=== PATIENT | female | born 1975 | race Caucasian/White ===

== ENCOUNTER 2016-10-02 12:18 | Emergency (ER) | payer MEDICAID ==
[2016-10-02 12:35] VITALS: BP 95/62
--- NOTE | 2016-10-02 13:23 | ER Document Report ---
ED Medical Screen (RME) - General Chief Complaint: Anxiety Stated Complaint: ANXIETY Mode of Arrival: Ambulatory Information source: Patient Notes: Patient presents to the ED tearful, complaining of extreme depression, weakness , fatigue. Relates history of much psychosocial stress. Has been taking Percocet which she has obtained from a friend. Has history of depression but no recent medication. TRAVEL OUTSIDE OF THE [place] IN LAST 30 DAYS: No - HPI Onset: Last week Onset/Duration: Gradual Quality of pain: Achy Associated Symptoms: Weakness. denies: Abdominal pain, Chest pain, Nausea Exacerbated by: Denies Relieved by: Denies Similar symptoms previously: Yes - NOT RECENT Recently seen / treated by doctor: No - Related Data Allergies/Adverse Reactions: No Known Allergies Allergy (Verified 10/02/16 12:33) Past Medical History - General Information source: Patient - Social History Cigarette use (# per day): Yes Chew tobacco use (# tins/day): No Frequency of alcohol use: None Drug Abuse: None Lives with: Friend Family history: Reviewed & Not Pertinent - Past Medical History Cardiac Medical History: Reports: None Pulmonary Medical History: Reports: None EENT Medical History: Reports: None Neurological Medical History: Reports: None Endocrine Medical History: Reports: None Renal/ Medical History: Reports: Hx Ovarian Cysts. Denies: Hx Peritoneal Dialysis Malignancy Medical History: Reports: None GI Medical History: Reports: None Musculoskeltal Medical History: Reports Other - CARPAL TUNNEL Psychiatric Medical History: Reports: Hx Anxiety, Hx Bipolar Disorder, Hx Depression Past Surgical History: Reports: Hx Abdominal Surgery, Hx Gynecologic Surgery - endometriosis - Immunizations Immunizations up to date: No Hx Diphtheria, Pertussis, Tetanus Vaccination: Yes - received this Review of Systems - Review of Systems Constitutional: See HPI EENT: No symptoms reported Cardiovascular: No symptoms reported Respiratory: No symptoms reported Gastrointestinal: No symptoms reported Genitourinary: No symptoms reported Female Genitourinary: No symptoms reported Musculoskeletal: See HPI Skin: No symptoms reported Neurological/Psychological: No symptoms reported Physical Exam - Vital signs Vitals: Temp Pulse Resp BP Pulse Ox 98.5 F 117 H 22 H 95/62 L 99 10/02/16 12:33 10/02/16 12:33 10/02/16 12:33 10/02/16 12:33 10/02/16 12:33 Interpretation: Hypotensive, Tachycardic, Tachypneic - General General appearance: Anxious In distress: Mild - HEENT Head: Normocephalic Eyes: Normal Ears: Normal Nasal: Normal Mouth/Lips: Normal Mucous membranes: Normal - Respiratory Respiratory status: No respiratory distress Breath sounds: Normal - Cardiovascular Rhythm: Regular, Tachycardia Heart sounds: Normal auscultation Murmur: No Course - Vital Signs Vital signs: Temp Pulse Resp BP Pulse Ox 98.5 F 117 H 22 H 95/62 L 99 10/02/16 12:33 10/02/16 12:33 10/02/16 12:33 10/02/16 12:33 10/02/16 12:33 Doctor's Discharge - Discharge Instructions: Anxiety ([facility])
[2016-10-02 14:02] LABS: ABSOLUTE BASOPHILS # (AUTO) 0.1 10^3/uL (0.0-0.2); ABSOLUTE LYMPHOCYTES (AUTO) 2.1 10^3/uL (0.5-4.7); ABSOLUTE NEUT (AUTO) 15.7 10^3/uL (1.7-8.2); BASOPHILS % (AUTO) 0.3 % (0-2); HEMATOCRIT 41.1 % (36.0-47.0); HEMOGLOBIN 13.7 g/dL (12.0-15.5); LYMPHOCYTES % (AUTO) 10.8 % (13-45); MEAN CORPUSCULAR HEMOGLOBIN 30.7 pg (27.0-33.4); MEAN CORPUSCULAR HGB CONC 33.3 g/dL (32.0-36.0); MEAN CORPUSCULAR VOLUME 92 fl (80-97); MONOCYTES % (AUTO) 10.1 % (3-13); RED BLOOD COUNT 4.45 10^6/uL (3.72-5.28); RED CELL DISTRIBUTION WIDTH 13.5 % (11.5-14.0); SEGMENTED NEUTROPHILS % (AUTO) 78.8 % (42-78); WHITE BLOOD COUNT 19.9 10^3/uL (4.0-10.5)
[2016-10-02 14:21] LABS: ALANINE AMINOTRANSFERASE 59 U/L (9-52); ALBUMIN 3.9 g/dL (3.5-5.0); ALKALINE PHOSPHATASE 91 U/L (38-126); ANION GAP 16 (5-19); ASPARTATE AMINO TRANSFERASE 52 U/L (14-36); BILIRUBIN,DIRECT 0.4 mg/dL (0.0-0.4); BILIRUBIN,TOTAL 0.6 mg/dL (0.2-1.3); BLOOD UREA NITROGEN 18 mg/dL (7-20); CARBON DIOXIDE 27 mmol/L (22-30); CHLORIDE 97 mmol/L (98-107); CREATININE RESULT 1.32 mg/dL (0.52-1.25); GLUCOSE 132 mg/dL (75-110); POTASSIUM 4.7 mmol/L (3.6-5.0); SODIUM 140.1 mmol/L (137-145); TOTAL PROTEIN 7.6 g/dL (6.3-8.2)
[2016-10-02 14:22] LABS: APPEARANCE,URINE CLOUDY; BILIRUBIN,URINE NEGATIVE (NEGATIVE); GLUCOSE, URINE NEGATIVE (NEGATIVE); KETONES,URINE NEGATIVE (NEGATIVE); LEUKOCYTE ESTERASE,URINE TRACE (NEGATIVE); NITRITE,URINE NEGATIVE (NEGATIVE); PROTEIN,URINE 100 mg/dL (NEGATIVE); URINE SPECIFIC GRAVITY 1.014; UROBILINOGEN,URINE NEGATIVE mg/dL (<2.0)
[2016-10-02 14:29] LABS: URINE BARBITURATES SCREEN NEGATIVE; URINE METHADONE SCREEN NEGATIVE; URINE OPIATES LOW UNCONFIRMED POSITIVE; URINE PHENCYCLIDINE SCREEN NEGATIVE
[2016-10-02 14:33] LABS: ALCOHOL < 10 mg/dL (NONE DETECTED)
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
[2016-10-02] MEDS ORDERED: NORMAL SALINE 1000 ML 1,000 ML IV ONE (14:39)
--- NOTE | 2016-10-03 08:12 | EKG REPORT ---
SEVERITY:- NORMAL ECG - SINUS RHYTHM : Confirmed by: Krish Fernandez MD 03-Oct-2016 08:10:48
== END 2016-10-02 16:06 | disposition home or self-care (01) ==
LOC: ER 12:18
DX: G56.03 Carpal tunnel syndrome, bilateral upper limbs (principal); F11.10 Opioid abuse, uncomplicated; F41.9 Anxiety disorder, unspecified; F17.210 Nicotine dependence, cigarettes, uncomplicated
CPT/HCPCS: 36415; 80053; 80307; 81001; 81025; 85025; 87040; 87086; 87088; 87186; 93005; 93010; 99283

== ENCOUNTER 2016-11-08 10:56 | Emergency (ER) | payer SELFPAY ==
[2016-11-08 11:00] VITALS: BP 131/76
[2016-11-08] MEDS ORDERED: LORATADINE 10 MG TABLET PO ONE (11:36)
[2016-11-08] MEDS ORDERED: PSEUDOEPHEDRINE HCL 30 MG TABLET PO ONE (11:36)
--- NOTE | 2016-11-08 11:41 | ER Document Report ---
HPI - HPI Patient complains to provider of: Ringing in her ears Onset: Other - Thursday Onset/Duration: Intermittent Quality of pain: Achy - And ringing Severity: Moderate Pain Level: 3 Associated Symptoms: Earache, Rhinnorhea, Sinus pain/drainage Exacerbated by: Denies Relieved by: Denies Similar symptoms previously: Yes Recently seen / treated by doctor: No - ROS ROS below otherwise negative: Yes - CONSTITUTIONAL Constitutional: DENIES: Fever, Chills - EENT EENT: REPORTS: Ear Pain, Nasal Drainage-Clear - NEURO Neurology: DENIES: Headache, Weakness, Vision blurred, Dizzinesss / Vertigo - CARDIOVASCULAR Cardiovascular: DENIES: Chest pain - RESPIRATORY Respiratory: DENIES: Trouble Breathing, Coughing - GASTROINTESTINAL Gastrointestinal: DENIES: Abdominal Pain, Nausea, Patient vomiting, Diarrhea, Constipation, Black / Bloody Stools - URINARY Urinary: DENIES: Dysuria, Urgency, Frequency - REPRODUCTIVE Reproductive: DENIES: :, Postmenopausal, Abnormal bleeding / discharge - MUSCULOSKELETAL Musculoskeletal: DENIES: Extremity pain, Back Pain, Neck Pain, Swelling - DERM Skin Color: Normal Skin Problems: None Past Medical History - General Information source: Patient - Social History Smoking Status: Current Every Day Smoker Cigarette use (# per day): Yes - Pack per day Chew tobacco use (# tins/day): No Smoking Education Provided: Yes - Less than 1 minute Frequency of alcohol use: None Drug Abuse: Marijuana, Prescription drugs - Percocet 30's states she is now on Suboxone Lives with: Family - And her daughter Family History: Reviewed & Not Pertinent Patient has suicidal ideation: No Patient has homicidal ideation: No - Past Medical History Cardiac Medical History: Reports: None Pulmonary Medical History: Reports: Hx Bronchitis EENT Medical History: Reports: None Neurological Medical History: Reports: Hx Seizures - As a child Endocrine Medical History: Reports: None Renal/ Medical History: Reports: Hx Ovarian Cysts, Other - Endometriosis Malignancy Medical History: Reports: None GI Medical History: Reports: None Musculoskeltal Medical History: Reports None Skin Medical History: Reports None Psychiatric Medical History: Reports: Hx Anxiety, Hx Bipolar Disorder, Hx Depression Traumatic Medical History: Reports: None Infectious Medical History: Reports: None Past Surgical History: Reports: Hx Gynecologic Surgery - endometriosis - Immunizations Immunizations up to date: No Hx Diphtheria, Pertussis, Tetanus Vaccination: Yes - received this Vertical Provider Document - CONSTITUTIONAL Agree With Documented VS: Yes Exam Limitations: No Limitations General Appearance: WD/WN, Mild Distress - Agitated and angry - INFECTION CONTROL TRAVEL OUTSIDE OF THE [place] IN LAST 30 DAYS: No - HEENT HEENT: Atraumatic, PERRLA Notes: Tympanic membranes have minimal fluid behind them no wax in the ears no redness to the tympanic membrane no bulging. - NECK Neck: Normal Inspection, Supple - RESPIRATORY Respiratory: Breath Sounds Normal, No Respiratory Distress O2 Sat by Pulse Oximetry: 100 - CARDIOVASCULAR Cardiovascular: Regular Rate, Regular Rhythm, No Murmur Course - Re-evaluation Re-evalutation: 11/08/16 11:42 Patient treated with Claritin and Sudafed and encouraged to follow-up with ENT. - Vital Signs Vital signs: Temp Pulse Resp BP Pulse Ox 97.8 F 56 L 20 131/76 H 100 11/08/16 10:58 11/08/16 10:58 11/08/16 10:58 11/08/16 10:58 11/08/16 10:58 Discharge - Discharge Clinical Impression: Ringing in left ear Otalgia Qualifiers: Laterality: right Qualified Code(s): H92.01 - Otalgia, right ear Condition: Stable Disposition: HOME, SELF-CARE Additional Instructions: UPPER RESPIRATORY ILLNESS: You have a viral infection of the respiratory passages -- a "cold." This common infection causes nasal congestion, drainage, and often sore throat and cough. It is highly contagious. The disease usually lasts about 10 to 14 days. There is no "cure" for the viral infection -- it must run its course. If there is a complication, such as bacterial infection in the nose, sinuses, middle ear, or bronchial tubes, antibiotics may be required. The antibiotics won't affect the virus. Drink plenty of fluids. A humidifier may help. An expectorant medication or decongestant may make you more comfortable. Use acetaminophen or ibuprofen for fever or aches. See the doctor if fever persists over two days, if there is any significant worsening of your symptoms, or if you simply fail to improve as expected. DECONGESTANT MEDICATION: A decongestant medicine has been suggested often this medicine is combined in the same tablet with an antihistamine or expectorant. This type of medicine is helpful in treating a bad cold or sinus condition, as well as in treatment of the nasal congestion of hay fever. It is not of much benefit for lung infections. Decongestant medicines are related to stimulants. They can cause an increase in blood pressure and heart rate. Persons with heart disease and high blood pressure should not take decongestants without discussing this with the physician. If you develop palpitations, chest pain, headache, or tremors, stop the medicine and consult your physician. Ibuprofen Ibuprofen is an excellent, safe drug for pain control. In addition, it has potent antiinflammatory effects which are beneficial, especially in the treatment of injuries, arthritis, or tendonitis. It's best to take ibuprofen with food. Persons with ulcer disease or allergy to aspirin should notify their physician of this before taking ibuprofen. Take the medication exactly as prescribed. Don't take additional doses unless instructed to do so by your doctor. If you develop wheezing, shortness of breath, hives, faintness, stomach pain, vomiting, or dark black stools, return for re-evaluation at once. USE OF ACETAMINOPHEN (Tylenol): Acetaminophen may be taken for pain relief or fever control. It's much safer than aspirin, offering a wider range of "safe" dosages. It is safe during . Some brand names are Tylenol, Panadol, Datril, Anacin 3, Tempra, and Liquiprin. Acetaminophen can be repeated every four hours. The following are maximum recommended dosages: >89 pounds or adults 650 mg to 900 mg Acetaminophen can be repeated every four hours. Maximum dose not to exceed 4000 mg a day. SMOKING: If you smoke, you should stop smoking. The tar and chemicals in cigarette smoke are harmful. Smoking has been shown to cause: emphysema chronic bronchitis lung cancer mouth and throat cancer stomach and pancreas cancer premature aging defects In addition, smoking increases ear and lung infections in children of smokers. FOLLOW-UP CARE: If you have been referred to a physician for follow-up care, call the physician s office for an appointment as you were instructed or within the next two days. If you experience worsening or a significant change in your symptoms, notify the physician immediately or return to the Emergency Department at any time for re-evaluation. [facility] [address] Forms: Elevated Blood Pressure, Smoking Cessation Education, Return to Work
== END 2016-11-08 12:00 | disposition home or self-care (01) ==
LOC: ER 10:56
DX: H93.12 Tinnitus, left ear (principal); H92.01 Otalgia, right ear; J34.89 Other specified disorders of nose and nasal sinuses; F17.210 Nicotine dependence, cigarettes, uncomplicated; Z71.6 Tobacco abuse counseling
CPT/HCPCS: 99282

== ENCOUNTER 2017-06-08 13:12 | Emergency (ER) | payer SELFPAY ==
[2017-06-08 13:23] VITALS: BP 111/74
--- NOTE | 2017-06-08 14:20 | RADIOLOGY REPORT (SQ) ---
EXAM DESCRIPTION: CHEST PA/LAT COMPLETED DATE/TIME: 06/08/2017 2:07 pm REASON FOR STUDY: cough fever COMPARISON: 01/08/2014 NUMBER OF VIEWS: Two view. TECHNIQUE: Frontal and lateral radiographic views of the chest acquired. LIMITATIONS: None. FINDINGS: LUNGS AND PLEURA: No opacities, masses or pneumothorax. No pleural effusion. MEDIASTINUM AND HILAR STRUCTURES: No masses or contour abnormalities. HEART AND VASCULATURE: Heart normal size. No evidence for failure. BONY STRUCTURES: No acute findings. HARDWARE: None. OTHER: No other significant finding. IMPRESSION: NO SIGNIFICANT RADIOGRAPHIC FINDING IN THE CHEST. TECHNICAL DOCUMENTATION: JOB ID: [id number] [employer]- All Rights Reserved
--- NOTE | 2017-06-08 14:23 | ER Document Report ---
ED General - General Chief Complaint: Cold Symptoms Stated Complaint: COUGH,CONGESTION,FEVER Time Seen by Provider: 06/08/17 13:37 Mode of Arrival: Ambulatory Information source: Patient Notes: 42-year-old female presents with 2 separate complaints. Patient notes that she is having URI symptoms. She admits to nonproductive cough of one-week duration. She notes her daughter had similar complaints. She denies any fevers or chills. Patient also notes that she has dental pain and believes a tooth is infected. She denies any bad taste or swelling of her face. She denies any difficulty swallowing or breathing TRAVEL OUTSIDE OF THE U.S. IN LAST 30 DAYS: No - HPI Onset: Last week Onset/Duration: Persistent Quality of pain: Achy Severity: Mild Pain Level: 1 Associated symptoms: Nonproductive cough, Other Exacerbated by: Food Relieved by: Denies Similar symptoms previously: No Recently seen / treated by doctor: No - Related Data Allergies/Adverse Reactions: No Known Allergies Allergy (Verified 11/08/16 10:58) Past Medical History - Social History Smoking Status: Current Every Day Smoker Cigarette use (# per day): Yes Chew tobacco use (# tins/day): No Smoking Education Provided: No Frequency of alcohol use: None Drug Abuse: None Family History: None Patient has suicidal ideation: No Patient has homicidal ideation: No Pulmonary Medical History: Reports: Hx Bronchitis Neurological Medical History: Reports: Hx Seizures - As a child Renal/ Medical History: Reports: Hx Ovarian Cysts. Denies: Hx Peritoneal Dialysis Psychiatric Medical History: Reports: Hx Anxiety, Hx Bipolar Disorder, Hx Depression Past Surgical History: Reports: Hx Abdominal Surgery, Hx Gynecologic Surgery - endometriosis - Immunizations Immunizations up to date: No Hx Diphtheria, Pertussis, Tetanus Vaccination: Yes - received this Review of Systems - Review of Systems Notes: REVIEW OF SYSTEMS: CONSTITUTIONAL : Denies fever, chills, or sweats. Denies recent illness. EENT: Admits to dental pain CARDIOVASCULAR: Denies chest pain. Denies palpitations or racing or irregular heart beat. Denies ankle edema. RESPIRATORY: Admits to nonproductive cough GASTROINTESTINAL: Denies abdominal pain or distention. Denies nausea, vomiting , or diarrhea. Denies blood in vomitus, stools, or per rectum. Denies black, tarry stools. Denies constipation. GENITOURINARY: Denies difficulty urinating, painful urination, burning, frequency, blood in urine, or discharge. FEMALE GENITOURINARY: Denies vaginal bleeding, heavy or abnormal periods, irregular periods. Denies vaginal discharge or odor. MUSCULOSKELETAL: Denies back or neck pain or stiffness. Denies joint pain or swelling. SKIN: Denies rash, lesions or sores. HEMATOLOGIC : Denies easy bruising or bleeding. LYMPHATIC: Denies swollen, enlarged glands. NEUROLOGICAL: Denies confusion or altered mental status. Denies passing out or loss of consciousness. Denies dizziness or lightheadedness. Denies headache. Denies weakness or paralysis or loss of use of either side. Denies problems with gait or speech. Denies sensory loss, numbness, or tingling. Denies seizures. PSYCHIATRIC: Denies anxiety or stress. Denies depression, suicidal ideation, or homicidal ideation. ALL OTHER SYSTEMS REVIEWED AND NEGATIVE. PHYSICAL EXAMINATION: GENERAL: Well-appearing, well-nourished and in no acute distress. HEAD: Atraumatic, normocephalic. EYES: Pupils equal round and reactive to light, extraocular movements intact, conjunctiva are normal. ENT: Tooth #20 tender to palpation nares patent, oropharynx clear without exudates. Moist mucous membranes. NECK: Normal range of motion, supple without lymphadenopathy LUNGS: Breath sounds clear to auscultation bilaterally and equal. No wheezes rales or rhonchi. HEART: Regular rate and rhythm without murmurs ABDOMEN: Soft, nontender, nondistended abdomen. No guarding, no rebound. No masses appreciated. Female : deferred Musculoskeletal: Normal range of motion, no pitting or edema. No cyanosis. NEUROLOGICAL: Cranial nerves grossly intact. Normal speech, normal gait. Normal sensory, motor exams PSYCH: Normal mood, normal affect. SKIN: Warm, Dry, normal turgor, no rashes or lesions noted. Dictation was performed using [employer] voice recognition software Physical Exam - Vital signs Vitals: Temp Pulse Resp BP Pulse Ox 98.5 F 81 18 111/74 100 06/08/17 13:23 06/08/17 13:23 06/08/17 13:23 06/08/17 13:23 06/08/17 13:23 Course - Re-evaluation Re-evalutation: 06/08/17 19:26 Chest x-ray noted no significant abnormality, patient's overall presentation is extremely benign, she is in no distress, patient does admit to dental pain, patient will be placed on antibiotics and given a list of low-cost dentistry for further care After performing a Medical Screening Examination, I estimate there is LOW risk for ACUTE CORONARY SYNDROME, PULMONARY EMBOLI, RESPIRATORY FAILURE, SEPSIS OR MENINGITIS, thus I consider the discharge disposition reasonable. I have reevaluated this patient multiple times and no significant life threatening changes are noted. The patient and I have discussed the diagnosis and risks, and we agree with discharging home with close follow-up. We also discussed returning to the Emergency Department immediately if new or worsening symptoms occur. We have discussed the symptoms which are most concerning (e.g., changing or worsening pain, trouble swallowing or breathing, neck stiffness, fever) that necessitate immediate return. - Vital Signs Vital signs: Temp Pulse Resp BP Pulse Ox 98.5 F 81 18 111/74 100 06/08/17 13:23 06/08/17 13:23 06/08/17 13:23 06/08/17 13:23 06/08/17 13:23 - Diagnostic Test Radiology reviewed: Image reviewed, Reports reviewed - No acute abnormality Discharge - Discharge Clinical Impression: URI with cough and congestion Condition: Stable Disposition: HOME, SELF-CARE Instructions: Upper Respiratory Illness ([facility]) Additional Instructions: Follow up with your physician tomorrow for further care or return to the ED IMMEDIATELY if symptoms worsen or new concerns occur. If you cannot afford to follow up with your primary care physician a list of low cost clinics have been provided at the end of your discharge papers as well. Prescriptions: Penicillin V Potassium [Penicillin Vk 500 mg Tablet] 500 mg PO QID #40 tablet
== END 2017-06-08 14:28 | disposition home or self-care (01) ==
LOC: ER 13:12
DX: R05 Cough (principal); R50.9 Fever, unspecified; F17.210 Nicotine dependence, cigarettes, uncomplicated
CPT/HCPCS: 71046; 99283

== ENCOUNTER 2017-07-24 13:52 | Emergency (ER) | payer SELFPAY ==
[2017-07-24 14:14] VITALS: BP 95/55
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
== END 2017-07-24 15:33 | disposition home or self-care (01) ==
LOC: ER 13:52
DX: G47.00 Insomnia, unspecified (principal); F32.89 Other specified depressive episodes; Z79.899 Other long term (current) drug therapy; F17.200 Nicotine dependence, unspecified, uncomplicated
CPT/HCPCS: 99281

== ENCOUNTER 2018-07-05 20:10 | Emergency (ER) | payer MEDICAID ==
[2018-07-06] MEDS ORDERED: LIDOCAINE 1% INJ-PF (10 MG/ML) 30 ML SDV INJ ONE (01:16)
[2018-07-06] MEDS ORDERED: CEPHALEXIN 500 MG CAPSULE PO ONE (01:23)
[2018-07-06] MEDS ORDERED: SULFAMETHOXAZOLE/TRIMETHOPRIM 800-160 MG TABLET PO ONE (01:24)
[2018-07-06] MEDS ORDERED: IBUPROFEN 600 MG TABLET PO ONE (01:25)
--- NOTE | 2018-07-06 01:27 | ER Document Report ---
HPI - HPI Time Seen by Provider: 07/06/18 00:55 Pain Level: 4 Context: Patient is a 43-year-old female who presents emergency department with a chief complaint of a cyst and boil to her left axilla and nose. She states that she does not want to have her cyst drained. She has had these for the past few days. She has a history of abcesses that were surgically removed. She also states that she is out of her bipolar and depression medication. She does IV drugs. She states that is painful and all she wants is to have ibuprofen and antibiotics. She also stated that she will get high and drain them herself. She does admit to having on and off fevers. - CONSTITUTIONAL Constitutional: REPORTS: Fever - low grade - EENT EENT: DENIES: Sore Throat - NEURO Neurology: DENIES: Headache - CARDIOVASCULAR Cardiovascular: DENIES: Chest pain - RESPIRATORY Respiratory: DENIES: Coughing - REPRODUCTIVE Reproductive: DENIES: : - DERM Skin Color: Other - Abscess to axilla; redness to the right side of nose. Past Medical History - General Information source: Patient - Social History Smoking Status: Current Every Day Smoker Drug Abuse: Cocaine, Marijuana Family History: None Patient has suicidal ideation: No Patient has homicidal ideation: No Pulmonary Medical History: Reports: Hx Bronchitis Neurological Medical History: Reports: Hx Seizures - As a child Renal/ Medical History: Reports: Hx Ovarian Cysts. Denies: Hx Peritoneal Dialysis Psychiatric Medical History: Reports: Hx Anxiety, Hx Bipolar Disorder, Hx Depression Past Surgical History: Reports: Hx Abdominal Surgery, Hx Gynecologic Surgery - endometriosis - Immunizations Immunizations up to date: No Hx Diphtheria, Pertussis, Tetanus Vaccination: Yes - received this Vertical Provider Document - INFECTION CONTROL TRAVEL OUTSIDE OF THE [place] IN LAST 30 DAYS: No - HEENT HEENT: Atraumatic, Normocephalic - NECK Neck: Normal Inspection - RESPIRATORY Respiratory: No Respiratory Distress - CARDIOVASCULAR Cardiovascular: Regular Rate, Regular Rhythm - MUSCULOSKELETAL/EXTREMETIES Musculoskeletal/Extremeties: FROM - NEURO Level of Consciousness: Awake, Alert, Agitated - DERM Integumentary: Warm, Dry, Abscess - to left axilla area; cellulitis noted to right nose Course - Re-evaluation Re-evalutation: 07/06/18 01:27 I have discussed with the patient that not draining her abscess and only being on antibiotics will not fix her abscess problem. She says she does not care and that she does not want it drained. She also states that she only wants antibiotics and some ibuprofen for pain. As far as her depression and bipolar medicine goes, she is asking to be referred out to a primary care provider. She states that she has been [facility] and does not wish to go there anymore. Verbal discharge instructions were given to the patient. They verbalized understanding. They are stable for discharge. - Vital Signs Vital signs: Temp Pulse Resp BP Pulse Ox 98.1 F 110 H 20 121/76 98 07/05/18 20:19 07/05/18 20:19 07/05/18 20:19 07/05/18 20:19 07/05/18 20:19 Discharge - Discharge Clinical Impression: Abscess Cellulitis Qualifiers: Site of cellulitis: unspecified site Qualified Code(s): L03.90 - Cellulitis, unspecified Condition: Stable Disposition: HOME, SELF-CARE Instructions: Abscess ([facility]), Cephalexin ([facility]), MRSA Cellulitis ([facility]), Trimethoprim-Sulfa ([facility]) Additional Instructions: You are seen in the emergency department for an abscess. You also have cellulitis, inflammation of the cells in the area. You have been given antibiotics. Since you did not want to have the abscess drained, or is no guarantee that your symptoms will get better. You may take ibuprofen 600 mg every 6 hours as needed for your pain. Please return if you develop fever, vomiting, the pain at the site worsens, you notice spreading redness from the area, or you have any other symptoms that are concerning to you. Below is a primary care provider that takes Medicaid, you may call their office to make an appointment for your primary care needs. Prescriptions: RX: Cephalexin Monohydrate [Keflex 500 mg Capsule] 500 mg PO Q6H 7 Days capsule Sulfamethoxazole/Trimethoprim [Bactrim Ds Tablet] 1 each PO BID 7 Days #14 tablet Referrals: SHAAN GUPTA MD [ACTIVE STAFF] - Follow up as needed
[2018-07-06 01:59] VITALS: BP 125/79
== END 2018-07-06 02:01 | disposition home or self-care (01) ==
LOC: ER 20:10
DX: L02.412 Cutaneous abscess of left axilla (principal); J34.0 Abscess, furuncle and carbuncle of nose; F17.200 Nicotine dependence, unspecified, uncomplicated
CPT/HCPCS: 99282; J3490 ×2

== ENCOUNTER 2018-07-28 16:39 | Emergency (ER) | payer MEDICAID ==
[2018-07-28 17:02] VITALS: BP 132/87
--- NOTE | 2018-07-28 17:15 | ER Document Report ---
ED Medical Screen (RME) - General Chief Complaint: Psych Problem Stated Complaint: FEELING ANXIOUS Time Seen by Provider: 07/28/18 17:13 Notes: 43 years old female with a history of cocaine abuse, presents today for detox program. She also have bipolar disorder. Feeling sad but not suicidal. But angry and hateful. TRAVEL OUTSIDE OF THE [place] IN LAST 30 DAYS: No - Related Data Allergies/Adverse Reactions: No Known Allergies Allergy (Verified 07/28/18 16:40) Past Medical History - Social History Chew tobacco use (# tins/day): No Drug Abuse: Cocaine Family history: Reviewed & Not Pertinent Pulmonary Medical History: Reports: Hx Bronchitis Neurological Medical History: Reports: Hx Seizures - As a child Renal/ Medical History: Reports: Hx Ovarian Cysts. Denies: Hx Peritoneal Dialysis Psychiatric Medical History: Reports: Hx Anxiety, Hx Bipolar Disorder, Hx Depression Past Surgical History: Reports: Hx Abdominal Surgery, Hx Gynecologic Surgery - endometriosis - Immunizations Immunizations up to date: No Hx Diphtheria, Pertussis, Tetanus Vaccination: Yes - received this Physical Exam - Vital signs Vitals: Temp Pulse Resp BP Pulse Ox 98.6 F 97 16 132/87 H 97 07/28/18 16:59 07/28/18 16:59 07/28/18 16:59 07/28/18 16:59 07/28/18 16:59 Course - Vital Signs Vital signs: Temp Pulse Resp BP Pulse Ox 98.6 F 97 16 132/87 H 97 07/28/18 16:59 07/28/18 16:59 07/28/18 16:59 07/28/18 16:59 07/28/18 16:59
--- NOTE | 2018-07-28 18:17 | ER Document Report ---
ED Psych Disorder / Suicide - General Chief Complaint: Psych Problem Stated Complaint: FEELING ANXIOUS Time Seen by Provider: 07/28/18 18:17 Primary Care Provider: [facility] [Provider Group] - Follow up as needed Mode of Arrival: Ambulatory Information source: Patient Notes: HISTORY OF PRESENT ILLNESS: Patient is a 43-year-old female with a past medical history of multiple chronic psychiatric conditions and chronic substance abuse who presents with increased depression that she reports is secondary to the birthday of her "baby lara." Onset: The past 2-3 days Provocation: Recent stress Quality: Increased depression Radiation: None Severity: Moderate Timing: Constant SI/HI: No Hallucinations: None Current therapist: None Current treatment: None REVIEW OF SYSTEMS: CONSTITUTIONAL : Denies fever or chills, no sweats. Denies recent illness. EENT: Denies eye, ear, throat, or mouth pain or symptoms. Denies nasal or sinus congestion. CARDIOVASCULAR: Denies chest pain. RESPIRATORY: Denies cough, cold, or chest congestion. Denies shortness of breath, difficulty breathing, or wheezing. GASTROINTESTINAL: Denies abdominal pain. Denies nausea, vomiting, or diarrhea. Denies constipation. GENITOURINARY: Denies difficulty urinating, painful urination, burning, frequency, or blood in urine. FEMALE GENITOURINARY: Denies vaginal bleeding, abnormal or irregular periods. Last menstrual period MUSCULOSKELETAL: Denies neck or back pain or joint pain or swelling. SKIN: Denies rash or skin lesions. HEMATOLOGIC : Denies easy bruising or bleeding. LYMPHATIC: Denies swollen, enlarged glands. NEUROLOGICAL: Denies altered mental status or loss of consciousness. Denies headache. Denies weakness or paralysis or loss of use of either side. Denies problems with gait or speech. Denies sensory or motor loss. PSYCHIATRIC: Positive for increased depression. Denies suicidal/homocidal thoughts. All other systems reviewed and negative. PHYSICAL EXAMINATION: GENERAL: Well-appearing, well-nourished and in no acute distress. HEAD: Atraumatic, normocephalic. No scalp deformity, depression, or crepitance. EYES: Pupils are 3 mm and equal/round/reactive to light, extraocular movements intact, sclera anicteric, conjunctiva are normal. ENT: Nares patent bilaterally, oropharynx clear without exudates or palatal petechia. Moist mucous membranes. No tonsil hypertrophy. NECK: Normal range of motion, supple without lymphadenopathy. LUNGS: Breath sounds present, equal, and clear to auscultation bilaterally. No wheezes, rales, or rhonchi. HEART: Regular rate and rhythm without murmurs, rubs, or gallops. 2+ peripheral pulses. Normal capillary refill. ABDOMEN: Soft, nontender, nondistended. Normoactive bowel sounds. No guarding, no rebound. No masses appreciated. BACK: Normal contour, no midline tenderness. Rectal exam deferred. PELVC: Deferred. EXTREMITIES: Normal range of motion, no pitting or edema. No cyanosis. NEUROLOGICAL: No focal neurological deficits. Moves all extremities spontaneously and on command. PSYCH: Tearful and depressed mood, normal affect. No suicidal thoughts/ideations. No homocidal thoughts/ideations. No hallucinations. SKIN: Warm, dry, normal turgor, no rashes or lesions noted. ASSESSMENT AND PLAN: This patient is a 43-year-old female who presents with increased depression wit hout suicidal or homicidal ideations. 1. Will obtain medical clearance, give the patient oral Depakote, and reassess. 2. The patient has requested to be given outpatient resources and be discharged once medically cleared. She will be discharged with return precautions and follow-up 3. Patient voices both agreeing and understanding with the plan. TRAVEL OUTSIDE OF THE [place] IN LAST 30 DAYS: No - Related Data Allergies/Adverse Reactions: No Known Allergies Allergy (Verified 07/28/18 16:40) Past Medical History - General Information source: Patient - Social History Smoking Status: Current Every Day Smoker Chew tobacco use (# tins/day): No Frequency of alcohol use: Occasional Drug Abuse: Cocaine, Marijuana Lives with: Alone Family History: None Patient has suicidal ideation: No Patient has homicidal ideation: No - Past Medical History Cardiac Medical History: Reports: None Pulmonary Medical History: Reports: Hx Bronchitis EENT Medical History: Reports: None Neurological Medical History: Reports: Hx Seizures - As a child Endocrine Medical History: Reports: None Renal/ Medical History: Reports: Hx Ovarian Cysts. Denies: Hx Peritoneal Dialysis Malignancy Medical History: Reports: None GI Medical History: Reports: None Musculoskeletal Medical History: Reports None Skin Medical History: Reports None Psychiatric Medical History: Reports: Hx Anxiety, Hx Bipolar Disorder, Hx Depression Traumatic Medical History: Reports: None Infectious Medical History: Reports: None Past Surgical History: Reports: Hx Abdominal Surgery, Hx Gynecologic Surgery - endometriosis - Immunizations Immunizations up to date: No Hx Diphtheria, Pertussis, Tetanus Vaccination: Yes - received this History of Influenza Vaccine for 03/2017 - 07/2017 Season: Unknown Physical Exam - Vital signs Vitals: Temp Pulse Resp BP Pulse Ox 98.6 F 97 16 132/87 H 97 07/28/18 16:59 07/28/18 16:59 07/28/18 16:59 07/28/18 16:59 07/28/18 16:59 Course - Vital Signs Vital signs: Temp Pulse Resp BP Pulse Ox 98.6 F 97 16 132/87 H 97 07/28/18 16:59 07/28/18 16:59 07/28/18 16:59 07/28/18 16:59 07/28/18 16:59 - Laboratory Result Diagrams: 07/28/18 18:10 07/28/18 18:10 Laboratory results interpreted by me: 07/28/18 18:10 Calcium 10.3 H Salicylates < 1.0 L Acetaminophen < 10 L - EKG Interpretation by Pr EKG shows normal: Sinus rhythm Rate: Normal Rhythm: NSR [place]/QRS: No: Right axis deviation, Left axis deviation, RBBB, LBBB, IVCD, LAHB/LAFB, LPHB/LPFB, Bifasicular block Voltage: No: Increased voltage, Consistant with LVH, Decreased voltage, Throughout, Limb leads P Waves: No: BHARATH, LAE, Absent, AV Dissociation, Other Heart block present: No: 1st Degree, Mobitz 1, Mobitz 2, CHB (3rd degree block) When compared to previous EKG there are: No significant change Discharge - Discharge Clinical Impression: Substance abuse, Chronic depression Bipolar disorder Qualifiers: Active/Remission status: currently active Current bipolar episode type: depressed Current episode severity: moderate Qualified Code(s): F31.32 - Bipolar disorder, current episode depressed, moderate Condition: Good Disposition: HOME, SELF-CARE Instructions: Bipolar Disorder ([facility]), Family Physicians / Practices Additional Instructions: You have been evaluated in the Emergency Department for bipolar disorder and depression. While here, you had blood work obtained and it is now safe to be discharged home. Please follow-up with the resources provided as instructed as soon as possible. Return to the Emergency Department if you experience thoughts of hurting yourself thoughts of hurting other people, or any other concerning symptoms. Prescriptions: Trazodone HCl 50 mg PO QHS #30 tablet Divalproex Sodium [Depakote] 250 mg PO TID #90 tablet. Sulfamethoxazole/Trimethoprim [Bactrim Ds Tablet] 1 each PO BID #14 tablet Referrals: [facility] [Provider Group] - Follow up as needed Print Language: Yoruba
[2018-07-28 18:18] LABS: ABSOLUTE BASOPHILS # (AUTO) 0.1 10^3/uL (0.0-0.2); ABSOLUTE EOSINOPHILS # (AUTO) 0.1 10^3/uL (0.0-0.6); ABSOLUTE LYMPHOCYTES (AUTO) 2.2 10^3/uL (0.5-4.7); ABSOLUTE NEUT (AUTO) 4.3 10^3/uL (1.7-8.2); HEMOGLOBIN 13.6 g/dL (12.0-15.5); MEAN CORPUSCULAR HEMOGLOBIN 31.8 pg (27.0-33.4); MEAN CORPUSCULAR HGB CONC 34.8 g/dL (32.0-36.0); MEAN CORPUSCULAR VOLUME 92 fl (80-97); MONOCYTES % (AUTO) 12.6 % (3-13); PLATELET COUNT 221 10^3/uL (150-450); RED BLOOD COUNT 4.26 10^6/uL (3.72-5.28); RED CELL DISTRIBUTION WIDTH 13.5 % (11.5-14.0); SEGMENTED NEUTROPHILS % (AUTO) 56.4 % (42-78); TOTAL CELLS COUNTED % (AUTO) 100 %; WHITE BLOOD COUNT 7.6 10^3/uL (4.0-10.5)
[2018-07-28 18:41] LABS: ALANINE AMINOTRANSFERASE 21 U/L (9-52); ALBUMIN 4.7 g/dL (3.5-5.0); ALKALINE PHOSPHATASE 70 U/L (38-126); ANION GAP 13 (5-19); ASPARTATE AMINO TRANSFERASE 27 U/L (14-36); BILIRUBIN,DIRECT 0.2 mg/dL (0.0-0.4); BILIRUBIN,TOTAL 0.3 mg/dL (0.2-1.3); BLOOD UREA NITROGEN 20 mg/dL (7-20); CALCIUM 10.3 mg/dL (8.4-10.2); CARBON DIOXIDE 25 mmol/L (22-30); CHLORIDE 101 mmol/L (98-107); GLUCOSE 90 mg/dL (75-110); POTASSIUM 4.3 mmol/L (3.6-5.0); TOTAL PROTEIN 8.2 g/dL (6.3-8.2)
[2018-07-28 18:42] LABS: ACETAMINOPHEN < 10 ug/mL (10-30); ALCOHOL < 10 mg/dL (NONE DETECTED); SALICYLATE < 1.0 mg/dL (2.0-20.0)
[2018-07-28] MEDS ORDERED: DIVALPROEX SODIUM 250 MG TABLET.DR PO ONE (19:00)
[2018-07-28 19:01] LABS: APPEARANCE,URINE CLEAR; BILIRUBIN,URINE NEGATIVE (NEGATIVE); COLOR,URINE YELLOW; GLUCOSE, URINE NEGATIVE (NEGATIVE); KETONES,URINE NEGATIVE (NEGATIVE); LEUKOCYTE ESTERASE,URINE NEGATIVE (NEGATIVE); NITRITE,URINE NEGATIVE (NEGATIVE); PROTEIN,URINE NEGATIVE (NEGATIVE); URINE SPECIFIC GRAVITY 1.021; UROBILINOGEN,URINE NEGATIVE mg/dL (<2.0)
[2018-07-28 19:15] LABS: URINE BARBITURATES SCREEN NEGATIVE; URINE BENZODIAZEPINES SCREEN NEGATIVE; URINE METHADONE SCREEN NEGATIVE; URINE PHENCYCLIDINE SCREEN NEGATIVE
[2018-07-28 19:55] LABS: URINE COCAINE SCREEN UNCONFIRMED POSITIVE; URINE MARIJUANA (THC) SCREEN UNCONFIRMED POSITIVE
--- NOTE | 2018-07-29 22:15 | EKG REPORT ---
SEVERITY:- NORMAL ECG - SINUS RHYTHM : Confirmed by: Demetrice Morrell 29-Jul-2018 22:14:49
== END 2018-07-28 19:50 | disposition home or self-care (01) ==
LOC: ER 16:39
DX: F31.9 Bipolar disorder, unspecified (principal); F14.10 Cocaine abuse, uncomplicated; F12.10 Cannabis abuse, uncomplicated; F17.200 Nicotine dependence, unspecified, uncomplicated
CPT/HCPCS: 93005; 99284; 36415; 80307 ×4; 85025; 80053; 81001; 93010; J3490

== ENCOUNTER → 2018-08-27 | Outpatient (CLI) | payer MEDICAID ==
--- NOTE | 2018-08-27 14:55 | RADIOLOGY REPORT (SQ) ---
EXAM DESCRIPTION: SHOULDER RIGHT 2 OR MORE VIEWS COMPLETED DATE/TIME: 08/27/2018 2:38 pm REASON FOR STUDY: PAIN IN RIGHT SHOULDER M25.511 PAIN IN RIGHT SHOULDER COMPARISON: None. NUMBER OF VIEWS: Three views. TECHNIQUE: Internal rotation, external rotation, and Y view images acquired of the right shoulder. LIMITATIONS: None. FINDINGS: MINERALIZATION: Normal. BONES: No acute fracture or dislocation. No worrisome bone lesions. JOINTS: No dislocation. VISUALIZED LUNGS AND RIBS: No pneumothorax. No rib fracture. SOFT TISSUES: No radiopaque foreign body. OTHER: No other significant finding. IMPRESSION: NEGATIVE STUDY OF THE RIGHT SHOULDER. NO RADIOGRAPHIC EVIDENCE OF ACUTE INJURY. TECHNICAL DOCUMENTATION: JOB ID: [id number] [employer]- All Rights Reserved Reading location - IP/workstation name: [email or web address]
== END ==
LOC: OD 13:42
PROVIDERS: ATTEND Nurse Practitioner Family
DX: M25.511 Pain in right shoulder (principal)

== ENCOUNTER 2018-10-03 13:12 | Emergency (ER) | payer MEDICAID ==
[2018-10-03 14:07] VITALS: BP 124/87
[2018-10-03 14:48] LABS: ABSOLUTE EOSINOPHILS # (AUTO) 0.1 10^3/uL (0.0-0.6); ABSOLUTE LYMPHOCYTES (AUTO) 1.8 10^3/uL (0.5-4.7); ABSOLUTE MONOCYTES (AUTO) 0.6 10^3/uL (0.1-1.4); ABSOLUTE NEUT (AUTO) 3.3 10^3/uL (1.7-8.2); BASOPHILS % (AUTO) 0.4 % (0-2); EOSINOPHILS % (AUTO) 1.4 % (0-6); HEMATOCRIT 40.9 % (36.0-47.0); HEMOGLOBIN 13.9 g/dL (12.0-15.5); LYMPHOCYTES % (AUTO) 31.4 % (13-45); MEAN CORPUSCULAR HEMOGLOBIN 31.8 pg (27.0-33.4); MEAN CORPUSCULAR HGB CONC 33.9 g/dL (32.0-36.0); MEAN CORPUSCULAR VOLUME 94 fl (80-97); MONOCYTES % (AUTO) 9.9 % (3-13); PLATELET COUNT 247 10^3/uL (150-450); RED BLOOD COUNT 4.37 10^6/uL (3.72-5.28); SEGMENTED NEUTROPHILS % (AUTO) 56.9 % (42-78); TOTAL CELLS COUNTED % (AUTO) 100 %; WHITE BLOOD COUNT 5.9 10^3/uL (4.0-10.5)
[2018-10-03 14:54] LABS: APPEARANCE,URINE CLEAR; BILIRUBIN,URINE NEGATIVE (NEGATIVE); COLOR,URINE STRAW; GLUCOSE, URINE NEGATIVE (NEGATIVE); KETONES,URINE NEGATIVE (NEGATIVE); LEUKOCYTE ESTERASE,URINE NEGATIVE (NEGATIVE); NITRITE,URINE NEGATIVE (NEGATIVE); PROTEIN,URINE NEGATIVE (NEGATIVE); URINE SPECIFIC GRAVITY 1.012; UROBILINOGEN,URINE NEGATIVE mg/dL (<2.0)
[2018-10-03 15:06] LABS: ALANINE AMINOTRANSFERASE 28 U/L (9-52); ALBUMIN 4.1 g/dL (3.5-5.0); ALKALINE PHOSPHATASE 61 U/L (38-126); ANION GAP 10 (5-19); ASPARTATE AMINO TRANSFERASE 22 U/L (14-36); BILIRUBIN,DIRECT 0.2 mg/dL (0.0-0.4); BILIRUBIN,TOTAL 0.2 mg/dL (0.2-1.3); BLOOD UREA NITROGEN 12 mg/dL (7-20); CALCIUM 10.1 mg/dL (8.4-10.2); CARBON DIOXIDE 27 mmol/L (22-30); CHLORIDE 104 mmol/L (98-107); GLUCOSE 95 mg/dL (75-110); POTASSIUM 4.6 mmol/L (3.6-5.0); SODIUM 140.8 mmol/L (137-145); TOTAL PROTEIN 7.6 g/dL (6.3-8.2)
--- NOTE | 2018-10-03 15:20 | RADIOLOGY REPORT (SQ) ---
EXAM DESCRIPTION: U/S ABDOMEN LIMITED W/O DOP COMPLETED DATE/TIME: 10/03/2018 3:06 pm REASON FOR STUDY: RUQ pain COMPARISON: None. TECHNIQUE: Dynamic and static grayscale images acquired of the abdomen and recorded on PACS. Additio juan selected color Doppler and spectral images recorded. LIMITATIONS: None. FINDINGS: PANCREAS: No masses. Visualized pancreatic duct normal caliber. LIVER: No masses. Echotexture normal. LIVER VASCULATURE: Normal directional flow of the main portal vein and hepatic veins. GALLBLADDER: No stones. Normal wall thickness. No pericholecystic fluid. ULTRASOUND-DETECTED CASTREJON'S SIGN: Negative. INTRAHEPATIC DUCTS AND COMMON DUCT: CBD and intrahepatic ducts normal caliber. No filling defects. INFERIOR VENA CAVA: Normal flow. AORTA: No aneurysm. RIGHT KIDNEY: Normal size. Normal echogenicity. No solid or suspicious masses. No hydronephrosis. No calcifications. PERITONEAL AND RIGHT PLEURAL SPACE: No ascites or effusions. OTHER: No other significant findings. IMPRESSION: NORMAL RIGHT UPPER QUADRANT ULTRASOUND. TECHNICAL DOCUMENTATION: JOB ID: [id number] [employer]- All Rights Reserved Reading location - IP/workstation name: [email or web address]
--- NOTE | 2018-10-03 15:22 | RADIOLOGY REPORT (SQ) ---
EXAM DESCRIPTION: U/S NON OB PEL TV W/DOPPLER COMPLETED DATE/TIME: 10/03/2018 3:06 pm REASON FOR STUDY: lower abdominal pain COMPARISON: None. TECHNIQUE: Dynamic and static grayscale images acquired of the pelvis via transvaginal approach and recorded on PACS. Additional selected color Doppler and spectral images recorded. LIMITATIONS: None. FINDINGS: UTERUS: No focal masses. Scattered calcifications. ENDOMETRIAL STRIPE: No focal or generalized thickening. No masses. CERVIX: No nabothian cysts. RIGHT OVARY AND DOPPLER: Normal size. No worrisome masses. Normal arterial vascular flow without evid ence for torsion. LEFT OVARY AND DOPPLER: Ovary not visualized. FREE FLUID: Free fluid in the left adnexum. OTHER: No other significant finding. MEASUREMENTS: UTERUS: 7.1 cm ENDOMETRIAL STRIPE: 1 cm RIGHT OVARY: 3 cm LEFT OVARY: Not visualized. IMPRESSION: Free fluid in the left adnexum. The left ovary is not identified. TECHNICAL DOCUMENTATION: JOB ID: [id number] [employer]- All Rights Reserved Rev Reading location - IP/workstation name: [email or web address]
[2018-10-03 15:59] LABS: EPITHELIALS (WET MOUNT) 3+ EPITHELIALS SEEN; T.VAGINALIS (WET MOUNT) NO TRICHOMONAS SEEN; WBCS (WET MOUNT) 1+ WBCS SEEN; YEAST (WET MOUNT) NO YEAST SEEN
--- NOTE | 2018-10-03 16:35 | ER Document Report ---
ED General - General Chief Complaint: Abdominal Pain Stated Complaint: ABDOMINAL PAIN Time Seen by Provider: 10/03/18 13:40 Primary Care Provider: JAMEL MONTES MD [ACTIVE STAFF] - Follow up as needed Notes: Patient is a 43 year old who presents to the emergency department with a chief complaint of right abdominal pain. She states that her symptoms started about 3 days ago. He is she states that the pain is a constant pain. She has not had this before. She denies any nausea, vomiting, or diarrhea. She has history of endometriosis, which she had surgery for. She has a past medical history of ovarian cyst. She states that she has had unprotected sex before. Her last menstrual cycle was 2 weeks ago. She was seen by urgent care, but was referred here to the emergency department for abdominal pain. Patient also has a history of marijuana use and cocaine use. Last time he she used cocaine was a week and a half ago. TRAVEL OUTSIDE OF THE [place] IN LAST 30 DAYS: No - Related Data Allergies/Adverse Reactions: No Known Allergies Allergy (Verified 10/03/18 13:14) Past Medical History - Social History Smoking Status: Unknown if Ever Smoked Family History: None Patient has suicidal ideation: No Patient has homicidal ideation: No Pulmonary Medical History: Reports: Hx Bronchitis Neurological Medical History: Reports: Hx Seizures - As a child Renal/ Medical History: Reports: Hx Ovarian Cysts. Denies: Hx Peritoneal Dialysis Psychiatric Medical History: Reports: Hx Anxiety, Hx Bipolar Disorder, Hx Depression Past Surgical History: Reports: Hx Abdominal Surgery, Hx Gynecologic Surgery - endometriosis - Immunizations Immunizations up to date: No Hx Diphtheria, Pertussis, Tetanus Vaccination: Yes - received this Review of Systems - Review of Systems Notes: REVIEW OF SYSTEMS: CONSTITUTIONAL : Denies recent illness. Denies recent unintentional weight loss. Denies fever, chills, or sweats. EENT: Denies eye, ear, throat, or mouth pain, discharge, or symptoms. Denies nasal or sinus congestion. CARDIOVASCULAR: Denies chest pain. RESPIRATORY: Denies shortness of breath, cough, congestion, difficulty noah thing, or wheezing. GASTROINTESTINAL: Denies nausea, vomiting, and diarrhea. Denies abdominal pain. Denies constipation. Last BM: GENITOURINARY: Denies difficulty urinating, burning, blood in urine, urgency or frequency. FEMALE GENITOURINARY: Denies abnormal or irregular periods. Denies abnormal bleeding. LMP: MUSCULOSKELETAL: Denies neck and back pain. Denies joint pain or swelling. SKIN: Denies rash, itchiness, or lesions HEMATOLOGIC : Denies easy bruising or bleeding. LYMPHATIC: Denies swollen, painful, enlarged glands. NEUROLOGICAL: Denies no numbness or tingling denies weakness. Denies headache. Denies altered mental status. Denies alteration in speech. PSYCHIATRIC: Denies stress, anxiety, alteration in sleep patterns, or depression. All other systems reviewed and negative. Physical Exam - Vital signs Vitals: Temp Pulse Resp BP Pulse Ox 97.7 F 79 16 124/87 H 99 10/03/18 14:06 10/03/18 14:06 10/03/18 14:06 10/03/18 14:06 10/03/18 14:06 - Notes Notes: PHYSICAL EXAMINATION: GENERAL: Appears well, healthy, well-nourished, no acute distress. HEAD: Normocephalic, atraumatic. EYES: PERRL, conjunctiva normal, all extraocular movements intact, sclera nonicteric ENT: Moist mucous membranes. NECK: Supple, no noticeable swelling, redness, rash. Normal range of motion. LUNGS: Equal breath sounds bilaterally and clear to auscultation. No wheezes rales or rhonchi. CARDIOVASCULAR: S1-S2, regular rate, regular rhythm. Radial pulses 2+, normal. ABDOMEN: Normoactive bowel sounds. Soft, tenderness noted to right upper quadrant and bilateral lower quadrants Rebound tenderness noted to the areas. EXTREMITIES: Normal strength and range of motion, no pitting or edema. No cyanosis. NEUROLOGICAL: Moves all extremities upon command. Strength 5/5 in all extremities. PSYCH: Normal mood, normal affect. SKIN: Warm, dry. No rash, lesions, ulcerations noted. Normal skin turgor. Course - Re-evaluation Re-evalutation: 10/03/18 16:43 The patient's ultrasound shows that she has free fluid in her left adnexal area. No comments on the right side. Patient's right upper quadrant ultrasound was negative for any acute findings. No cholecystitis or cholelithiasis noted. I spoke with Dr. Montes, and she states that the patient most likely has an ovarian cyst that released. She does not have any bacteria noted on her wet mount. She did have some cervical motion tenderness, but her labs are not back yet. 10/03/18 16:59 The patient's gonorrhea and Chlamydia have not resulted yet. The patient is anxious to leave and she just would like to be treated for gonorrhea and chlamydia here in the emergency department. She is also asking to be treated for pelvic inflammatory disease. Strict return precautions were given to the patient. Verbal discharge instructions were given to the patient. They verbalized understanding. They are stable for discharge. - Vital Signs Vital signs: Temp Pulse Resp BP Pulse Ox 97.7 F 79 16 124/87 H 99 10/03/18 14:06 10/03/18 14:06 10/03/18 14:06 10/03/18 14:06 10/03/18 14:06 - Laboratory Result Diagrams: 10/03/18 14:30 10/03/18 14:30 Discharge - Discharge Clinical Impression: Abdominal pain Qualifiers: Abdominal location: unspecified location Qualified Code(s): R10.9 - Unspecified abdominal pain Condition: Stable Disposition: HOME, SELF-CARE Instructions: Toradol Injection ([facility]) Additional Instructions: You were seen today in the emergency department for abdominal pain. The most likely cause of your abdominal pain is due to ovarian cysts. You have been prescribed Toradol, medication to help with pain. Please take as needed. You also were treated for gonorrhea and chlamydia here in the emergency department. You are also being treated for pelvic inflammatory disease. Please take all your antibiotics as prescribed. Do not have sex until all your antibiotics are done. If you develop a fever greater than 100.4 F, or have any symptoms that are worrisome to you, please return to the emergency department. Please follow- up with [facility] if you continue to have problems with your pain. Prescriptions: Ketorolac Tromethamine [Toradol 10 mg Tablet] 10 mg PO Q6HP PRN #20 tablet PRN Reason: Doxycycline Hyclate 100 mg PO BID #28 capsule Metronidazole [Flagyl 500 mg Tablet] 500 mg PO Q6H #28 tablet Referrals: JAMEL MONTES MD [ACTIVE STAFF] - Follow up as needed
[2018-10-03] MEDS ORDERED: KETOROLAC TROMETHAMINE INJ/PF 30 MG/1 ML SDV IV ONE (16:42)
[2018-10-03] MEDS ORDERED: AZITHROMYCIN 250 MG TABLET PO ONE (17:00)
[2018-10-03] MEDS ORDERED: CEFTRIAXONE INJ 250 MG VIAL IM ONE (17:00)
[2018-10-03] MEDS ORDERED: LIDOCAINE 1% INJ-PF (10 MG/ML) 30 ML SDV ONE (17:06)
[2018-10-03] MEDS ORDERED: ACETAMINOPHEN 325 MG TABLET PO ONE (17:14)
[2018-10-03 17:30] LABS: CHLAM PCR NOT DETECTED (NOT DETECT); GON PCR NOT DETECTED (NOT DETECT)
== END 2018-10-03 17:31 | disposition home or self-care (01) ==
LOC: ER 13:12
DX: R10.9 Unspecified abdominal pain (principal); F12.90 Cannabis use, unspecified, uncomplicated; F14.90 Cocaine use, unspecified, uncomplicated
CPT/HCPCS: 99284; 96372; 96374; 36415; 87210; 85025; 81025; 80053; 81001; 87491; 87591; 76705; 76830; 93976; J3490 ×2; Q0144; J1885; J0696

== ENCOUNTER → 2019-03-25 | Outpatient (CLI) | payer MEDICAID | LOC: OD 14:14 | PROVIDERS: ATTEND Nurse Practitioner Family | DX: R30.0 Dysuria (principal) | CPT/HCPCS: 87086; 87088; 87186 ==

== ENCOUNTER 2019-05-13 16:14 | Emergency (ER) | payer MEDICAID ==
--- NOTE | 2019-05-13 18:01 | ER Document Report ---
ED Medical Screen (RME) - General Chief Complaint: Psych Problem Stated Complaint: PSYCH EVAL Primary Care Provider: KRISHNA GORDON FNP-BC [Primary Care Provider] - Follow up as needed Information source: Patient Notes: Patient presents complaining of rapid mood swings and agitation. Patient states she is addicted to cocaine but we use any street drugs that she can get her hands on. Patient states she last used cocaine 3 hours ago. Patient reports having thoughts of wanting to hurt people if they get in her way. Patient denies any suicidal ideation. I have greeted and performed a rapid initial assessment of this patient. A comprehensive ED assessment and evaluation of the patient, analysis of test results and completion of the medical decision making process will be conducted by additional ED providers. TRAVEL OUTSIDE OF THE [place] IN LAST 30 DAYS: No - Related Data Allergies/Adverse Reactions: No Known Allergies Allergy (Verified 05/13/19 17:54) Past Medical History - Social History Family history: Reviewed & Not Pertinent Pulmonary Medical History: Reports: Hx Bronchitis Neurological Medical History: Reports: Hx Seizures - As a child Renal/ Medical History: Reports: Hx Ovarian Cysts. Denies: Hx Peritoneal Dialysis Psychiatric Medical History: Reports: Hx Anxiety, Hx Bipolar Disorder, Hx Depression Past Surgical History: Reports: Hx Abdominal Surgery, Hx Gynecologic Surgery - endometriosis - Immunizations Immunizations up to date: No Hx Diphtheria, Pertussis, Tetanus Vaccination: Yes - received this Physical Exam - Vital signs Vitals: Temp Pulse Resp BP Pulse Ox 98.6 F 92 16 130/84 H 97 05/13/19 17:00 05/13/19 17:00 05/13/19 17:00 05/13/19 17:00 05/13/19 17:00 - General General appearance: Alert - Psychological Associated symptoms: Agitated Course - Vital Signs Vital signs: Temp Pulse Resp BP Pulse Ox 98.6 F 92 16 130/84 H 97 05/13/19 17:00 05/13/19 17:00 05/13/19 17:00 05/13/19 17:00 05/13/19 17:00 Doctor's Discharge - Discharge Referrals: KRISHNA GORDON FNP-BC [Primary Care Provider] - Follow up as needed
[2019-05-13 18:47] VITALS: BP 133/79
[2019-05-13 18:55] LABS: APPEARANCE,URINE CLEAR; BILIRUBIN,URINE NEGATIVE (NEGATIVE); COLOR,URINE YELLOW; GLUCOSE, URINE NEGATIVE (NEGATIVE); KETONES,URINE NEGATIVE (NEGATIVE); LEUKOCYTE ESTERASE,URINE NEGATIVE (NEGATIVE); NITRITE,URINE NEGATIVE (NEGATIVE); PROTEIN,URINE NEGATIVE (NEGATIVE); URINE SPECIFIC GRAVITY 1.015; UROBILINOGEN,URINE NEGATIVE mg/dL (<2.0)
[2019-05-13 18:59] LABS: ABSOLUTE EOSINOPHILS # (AUTO) 0.1 10^3/uL (0.0-0.6); ABSOLUTE MONOCYTES (AUTO) 1.1 10^3/uL (0.1-1.4); ABSOLUTE NEUT (AUTO) 7.3 10^3/uL (1.7-8.2); BASOPHILS % (AUTO) 0.3 % (0-2); EOSINOPHILS % (AUTO) 0.5 % (0-6); HEMATOCRIT 42.3 % (36.0-47.0); HEMOGLOBIN 14.3 g/dL (12.0-15.5); LYMPHOCYTES % (AUTO) 26.2 % (13-45); MEAN CORPUSCULAR HEMOGLOBIN 32.3 pg (27.0-33.4); MEAN CORPUSCULAR HGB CONC 33.9 g/dL (32.0-36.0); MEAN CORPUSCULAR VOLUME 95 fl (80-97); MONOCYTES % (AUTO) 9.6 % (3-13); PLATELET COUNT 279 10^3/uL (150-450); RED BLOOD COUNT 4.45 10^6/uL (3.72-5.28); RED CELL DISTRIBUTION WIDTH 12.6 % (11.5-14.0); SEGMENTED NEUTROPHILS % (AUTO) 63.4 % (42-78); TOTAL CELLS COUNTED % (AUTO) 100 %; WHITE BLOOD COUNT 11.5 10^3/uL (4.0-10.5)
[2019-05-13 19:11] LABS: URINE AMPHETAMINES SCREEN NEGATIVE; URINE BARBITURATES SCREEN NEGATIVE; URINE BENZODIAZEPINES SCREEN NEGATIVE; URINE METHADONE SCREEN NEGATIVE; URINE PHENCYCLIDINE SCREEN NEGATIVE
[2019-05-13 19:12] LABS: URINE COCAINE SCREEN UNCONFIRMED POSITIVE; URINE MARIJUANA (THC) SCREEN UNCONFIRMED POSITIVE
[2019-05-13 19:20] LABS: ALBUMIN 4.4 g/dL (3.5-5.0); ALKALINE PHOSPHATASE 88 U/L (38-126); ANION GAP 12 (5-19); ASPARTATE AMINO TRANSFERASE 40 U/L (14-36); BILIRUBIN,DIRECT 0.2 mg/dL (0.0-0.4); BILIRUBIN,TOTAL 0.3 mg/dL (0.2-1.3); BLOOD UREA NITROGEN 16 mg/dL (7-20); CARBON DIOXIDE 24 mmol/L (22-30); CHLORIDE 104 mmol/L (98-107); GLUCOSE 130 mg/dL (75-110); TOTAL PROTEIN 7.9 g/dL (6.3-8.2)
[2019-05-13 19:22] LABS: ACETAMINOPHEN < 10 ug/mL (10-30); ALCOHOL < 10 mg/dL (NONE DETECTED); SALICYLATE < 1.0 mg/dL (2.0-20.0)
[2019-05-13] MEDS ORDERED: LORAZEPAM INJ 2 MG/1 ML VIAL IM ONE (20:30)
--- NOTE | 2019-05-13 20:36 | ER Document Report ---
ED General - General Chief Complaint: Psych Problem Stated Complaint: PSYCH EVAL Time Seen by Provider: 05/13/19 20:18 Primary Care Provider: KRISHNA GORDON FNP-BC [NURSE PRACTITIONER] - Follow up as needed Notes: This 44-year-old woman presents to the emergency department with a history of bipolar disease, states that she has been using cocaine and not taking her medications. She is on Abilify, 5 mg twice a day states that she does not feel the medication is working. She is feeling irritable and came to the hospital hoping to get some help in getting stabilized. She denies suicidal or homicidal ideations and denies auditory or visual hallucinations. Presently does not have primary provider or outpatient behavioral health service. TRAVEL OUTSIDE OF THE [place] IN LAST 30 DAYS: No - Related Data Allergies/Adverse Reactions: No Known Allergies Allergy (Verified 05/13/19 17:54) Home Medications: Abilify Past Medical History - General Information source: Patient - Social History Smoking Status: Current Every Day Smoker Chew tobacco use (# tins/day): Yes Frequency of alcohol use: Occasional Drug Abuse: Cocaine Family History: None Patient has suicidal ideation: No Patient has homicidal ideation: No Pulmonary Medical History: Reports: Hx Bronchitis Neurological Medical History: Reports: Hx Seizures - As a child Renal/ Medical History: Reports: Hx Ovarian Cysts. Denies: Hx Peritoneal Dialysis Psychiatric Medical History: Reports: Hx Anxiety, Hx Bipolar Disorder, Hx Depression Past Surgical History: Reports: Hx Abdominal Surgery, Hx Gynecologic Surgery - endometriosis - Immunizations Immunizations up to date: No Hx Diphtheria, Pertussis, Tetanus Vaccination: Yes - received this Review of Systems - Review of Systems Notes: Constitutional: Negative for fever. Cardiovascular: Negative for chest pain. Respiratory: Negative for shortness of breath. Gastrointestinal: Negative for vomiting Musculoskeletal: Negative for back pain. Skin: Negative for rash. Neurological: Negative for weakness or numbness. Psychiatric: Negative suicidal or homicidal ideation 10 point ROS negative except as marked above and in HPI. Physical Exam - Vital signs Vitals: Temp Pulse Resp BP Pulse Ox 98.6 F 92 16 130/84 H 97 05/13/19 17:00 05/13/19 17:00 05/13/19 17:00 05/13/19 17:00 05/13/19 17:00 - Notes Notes: PHYSICAL EXAMINATION: Physical Exam: General: Well-nourished well-developed female in no acute distress HEENT: NC/AT, pupils equal round and reactive to light, MM moist,nares clear, Neck: supple, no adenopathy, no masses. Lungs: clear, no wheezing, no rales no rhonchi CVS: Regular rate and rhythm no murmur gallop or rub Abdomen: Soft active nontender, no masses, no hepatosplenomegaly Ext: Left shoulder tenderness, No edema clubbing or cyanosis. Neuro: Alert and responsive, moving all 4 extremities on command, cranial nerves intact. Skin: Intact no open lesions, no rash PSYCH: Anxious mood, no homicidal or suicidal ideations, no auditory or visual hallucinations. Normal affect. Course - Re-evaluation Re-evalutation: 05/13/19 20:48 Patient states that she will be going home with her boyfriend, needs something to help her relax, will follow-up as an outpatient information given nellie. She is given Lorazepam 2 mg IM. - Vital Signs Vital signs: Temp Pulse Resp BP Pulse Ox 97.7 F 80 12 133/79 H 99 05/13/19 17:57 05/13/19 17:57 05/13/19 17:57 05/13/19 17:57 05/13/19 17:57 - Laboratory Result Diagrams: 05/13/19 18:30 05/13/19 18:30 Laboratory results interpreted by me: 05/13/19 05/13/19 18:30 18:30 WBC 11.5 H Glucose 130 H AST 40 H Salicylates < 1.0 L Acetaminophen < 10 L Discharge - Discharge Clinical Impression: Cocaine substance abuse, Anxiety, Bipolar disease, chronic Condition: Good Disposition: HOME, SELF-CARE Additional Instructions: You should follow-up with an outpatient behavioral health provider, information given nellie will be useful. You can call and follow-up on Thursday. If there are changes or concerns feel free to return to the emergency department for further evaluation and treatment. Referrals: KRISHNA GORDON FNP-BC [NURSE PRACTITIONER] - Follow up as needed
--- NOTE | 2019-05-13 21:52 | EKG REPORT ---
SEVERITY:- NORMAL ECG - SINUS RHYTHM : Confirmed by: Krish Fernandez MD 13-May-2019 21:51:45
== END 2019-05-13 20:59 | disposition home or self-care (01) ==
LOC: ER 16:14
DX: F14.10 Cocaine abuse, uncomplicated (principal); F41.9 Anxiety disorder, unspecified; F31.9 Bipolar disorder, unspecified; F17.220 Nicotine dependence, chewing tobacco, uncomplicated
CPT/HCPCS: 93005; 99284; 96372; 36415; 80307 ×4; 84703; 85025; 80053; 81001; 93010; J2060

== ENCOUNTER 2019-08-07 00:13 | Emergency (ER) | payer MEDICAID, OTHER ==
[2019-08-07] MEDS ORDERED: LIDOCAINE 1% INJ-PF (10 MG/ML) 30 ML SDV NEB ONE (05:39)
--- NOTE | 2019-08-07 05:39 | ER Document Report ---
ED Medical Screen (RME) - General Chief Complaint: Cough Stated Complaint: COUGH Time Seen by Provider: 08/07/19 05:34 Notes: Patient is a 44-year-old female that comes emergency department for chief complaint of shortness of breath, dizziness when she stands, a painful nonstop cough, feeling feverish, and feeling generally rundown. She denies wheezing, she stopped smoking 1 week ago, she denies history of asthma. TRAVEL OUTSIDE OF THE [place] IN LAST 30 DAYS: No - Related Data Allergies/Adverse Reactions: No Known Allergies Allergy (Verified 05/13/19 17:54) Home Medications: depakote. prozac. trazadone Past Medical History - Social History Family history: Reviewed & Not Pertinent Pulmonary Medical History: Reports: Hx Bronchitis Neurological Medical History: Reports: Hx Seizures - As a child Renal/ Medical History: Reports: Hx Ovarian Cysts. Denies: Hx Peritoneal Dialysis Psychiatric Medical History: Reports: Hx Anxiety, Hx Bipolar Disorder, Hx Depression Past Surgical History: Reports: Hx Abdominal Surgery, Hx Gynecologic Surgery - endometriosis - Immunizations Immunizations up to date: No Hx Diphtheria, Pertussis, Tetanus Vaccination: Yes - received this Physical Exam - Vital signs Vitals: Temp Pulse Resp BP Pulse Ox 97.9 F 78 20 104/59 L 98 08/07/19 03:35 08/07/19 03:35 08/07/19 03:35 08/07/19 03:35 08/07/19 03:35 - Respiratory Respiratory status: Other - No respiratory distress but patient does have a persistent cough Breath sounds: No: Decreased air movement, Stridor Course - Re-evaluation Re-evalutation: I have greeted and performed a rapid initial assessment of this patient. A comprehensive ED assessment and evaluation of the patient, analysis of test results and completion of the medical decision making process will be conducted by additional ED providers. - Vital Signs Vital signs: Temp Pulse Resp BP Pulse Ox 97.9 F 78 20 104/59 L 98 08/07/19 03:35 08/07/19 03:35 08/07/19 03:35 08/07/19 03:35 08/07/19 03:35
[2019-08-07 06:42] LABS: ABSOLUTE EOSINOPHILS # (AUTO) 0.1 10^3/uL (0.0-0.6); ABSOLUTE LYMPHOCYTES (AUTO) 3.4 10^3/uL (0.5-4.7); ABSOLUTE MONOCYTES (AUTO) 0.8 10^3/uL (0.1-1.4); ABSOLUTE NEUT (AUTO) 3.2 10^3/uL (1.7-8.2); BASOPHILS % (AUTO) 0.6 % (0-2); EOSINOPHILS % (AUTO) 1.8 % (0-6); HEMATOCRIT 36.2 % (36.0-47.0); HEMOGLOBIN 12.8 g/dL (12.0-15.5); LYMPHOCYTES % (AUTO) 44.4 % (13-45); MEAN CORPUSCULAR HEMOGLOBIN 33.6 pg (27.0-33.4); MEAN CORPUSCULAR HGB CONC 35.4 g/dL (32.0-36.0); MEAN CORPUSCULAR VOLUME 95 fl (80-97); MONOCYTES % (AUTO) 10.8 % (3-13); PLATELET COUNT 192 10^3/uL (150-450); RED BLOOD COUNT 3.81 10^6/uL (3.72-5.28); SEGMENTED NEUTROPHILS % (AUTO) 42.4 % (42-78); TOTAL CELLS COUNTED % (AUTO) 100 %; WHITE BLOOD COUNT 7.7 10^3/uL (4.0-10.5)
[2019-08-07 06:45] LABS: A TYPE INFLUENZA AG NEGATIVE (NEGATIVE)
[2019-08-07 06:46] LABS: B INFLUENZA AG NEGATIVE (NEGATIVE)
[2019-08-07 06:59] LABS: ALBUMIN 3.4 g/dL (3.5-5.0); ALKALINE PHOSPHATASE 53 U/L (38-126); ANION GAP 6 (5-19); ASPARTATE AMINO TRANSFERASE 23 U/L (14-36); BILIRUBIN,TOTAL 0.2 mg/dL (0.2-1.3); BLOOD UREA NITROGEN 12 mg/dL (7-20); CALCIUM 8.8 mg/dL (8.4-10.2); CARBON DIOXIDE 27 mmol/L (22-30); CHLORIDE 107 mmol/L (98-107); GLUCOSE 104 mg/dL (75-110); TOTAL PROTEIN 6.4 g/dL (6.3-8.2)
--- NOTE | 2019-08-07 07:07 | RADIOLOGY REPORT (SQ) ---
PA and lateral chest radiograph: 08/07/2019 6:05 AM CDT History: 44-year old patient with productive cough, dyspnea. Comparison: Chest radiograph performed 06/08/2017 Findings: The cardiomediastinal silhouette is normal in size. No pneumothorax is seen. No discrete pleural effusion is apparent. There are interstitial airspace opacities within the lung bases. Impression: There are interstitial airspace opacities within the lung bases which may reflect infection.
--- NOTE | 2019-08-07 09:20 | EKG REPORT ---
SEVERITY:- NORMAL ECG - SINUS RHYTHM : Confirmed by: Krish Fernandez MD 07-Aug-2019 09:19:44
[2019-08-07 09:56] VITALS: BP 95/43
--- NOTE | 2019-08-07 14:31 | ER Document Report ---
Entered by ARIN PHOENIX SCRIBE 08/07/19 0718 Acting as scribe for:JOE RAND MD ED General - General Chief Complaint: Cough Stated Complaint: COUGH Time Seen by Provider: 08/07/19 05:34 Mode of Arrival: Ambulatory Information source: Patient Notes: This 44-year-old female patient presents to the emergency department today with complaints of a 3-day history of a cough with associated fatigue and shortness of breath. Patient mentions that she has been a lifelong smoker but she "stopped about a week ago". Patient states she sometimes brings up white sputum but not always. Patient complains of chest wall pain that is reproducible with her cough. Patient also mentions having diarrhea the last 3 days. Patient denies any fevers, chills, headache, or sick contacts. TRAVEL OUTSIDE OF THE [place] IN LAST 30 DAYS: No - Related Data Allergies/Adverse Reactions: No Known Allergies Allergy (Verified 05/13/19 17:54) Home Medications: depakote. prozac. trazadone Past Medical History - General Information source: Patient - Social History Smoking Status: Current Some Day Smoker Cigarette use (# per day): Yes Frequency of alcohol use: None Drug Abuse: None Lives with: Family Family History: None Patient has suicidal ideation: No Patient has homicidal ideation: No Pulmonary Medical History: Reports: Hx Bronchitis Neurological Medical History: Reports: Hx Seizures - As a child Renal/ Medical History: Reports: Hx Ovarian Cysts. Denies: Hx Peritoneal Dialysis Psychiatric Medical History: Reports: Hx Anxiety, Hx Bipolar Disorder, Hx Depression Past Surgical History: Reports: Hx Abdominal Surgery, Hx Gynecologic Surgery - endometriosis - Immunizations Immunizations up to date: No Hx Diphtheria, Pertussis, Tetanus Vaccination: Yes - received this Review of Systems - Review of Systems Constitutional: See HPI, Malaise. denies: Chills, Fever EENT: No symptoms reported Cardiovascular: No symptoms reported Respiratory: See HPI, Cough, Short of breath Gastrointestinal: See HPI, Diarrhea Genitourinary: No symptoms reported Female Genitourinary: No symptoms reported Musculoskeletal: No symptoms reported Skin: No symptoms reported Hematologic/Lymphatic: No symptoms reported Neurological/Psychological: denies: Headaches -: Yes All other systems reviewed and negative Physical Exam - Vital signs Vitals: Temp Pulse Resp BP Pulse Ox 97.9 F 78 20 104/59 L 98 03/08/20 03:35 08/07/19 03:35 08/07/19 03:35 08/07/19 03:35 08/07/19 03:35 - Notes Notes: Physical Exam: General: Alert, appears well. HEENT: Normocephalic. Atraumatic. PERRL. Extraocular movements intact. Oropharynx clear. Neck: Supple. Non-tender. Respiratory: No respiratory distress. Clear and equal breath sounds bilaterally. Reproducible chest pain, anterior chest wall tenderness with palpation. Cardiovascular: Regular rate and rhythm. Abdominal: Normal Inspection. Non-tender. No distension. Normal Bowel Sounds. Back: No gross abnormalities. Extremities: Moves all four extremities. Upper extremities: Normal inspection. Normal ROM. Lower extremities: Normal inspection. No edema. Normal ROM. Neurological: Normal cognition. AAOx4. Normal speech. Psychological: Normal affect. Normal Mood. Skin: Warm. Dry. Normal color. Course - Re-evaluation Re-evalutation: 08/07/19 10:09 Patient is resting comfortably not showing any signs of distress at this time. Pulse oximetry is 99%. Patient chest x-ray read by radiologist as questionable low opacities in the bases that may be related to an infection. - Vital Signs Vital signs: Temp Pulse Resp BP Pulse Ox 98.5 F 85 14 95/43 L 99 08/07/19 09:53 08/07/19 09:53 08/07/19 09:53 08/07/19 09:53 08/07/19 09:53 - Laboratory Result Diagrams: 08/07/19 06:25 08/07/19 06:25 Laboratory results interpreted by me: 08/07/19 08/07/19 06:25 06:25 MCH 33.6 H Albumin 3.4 L 08/07/19 10:11 Influenza a and B both negative. - Diagnostic Test Radiology reviewed: Image reviewed, Reports reviewed Radiology results interpreted by me: 08/07/19 10:09 Radiology chest x-ray shows questionable opacities in bases that may be related to pneumonic infiltrate. Discharge - Discharge Clinical Impression: Acute bronchitis, Cough Condition: Stable Disposition: HOME, SELF-CARE Additional Instructions: Bronchitis You have acute bronchitis. This disease is an infection or inflammation of the air passageways in your lungs. Symptoms usually include cough, low grade fever, shortness of breath, and wheezing. The cough usually persists for a couple of weeks. Most cases of bronchitis get better without antibiotics. We prescribe a ntibiotics when we believe bacteria are damaging your airways, or if there's high risk the bronchitis will worsen into pneumonia. Increase your fluid intake. A cool mist humidifier may make your lungs more comfortable. An expectorant (cough medicine that loosens phlegm) can help. If you smoke, STOP!!! Recovery from bronchitis can be somewhat slow, but you should see improvement within a day or two. Repeated episodes of bronchitis may result in lung damage -- for example, chronic bronchitis, recurrent pneumonias, or emphysema. Call the doctor if you develop increasing fever, shortness of breath, chest pain, bloody sputum, or otherwise worsen. If you have not improved at all after several days, contact the physician. REcommend MUCINEX DM COUGH TABS Q12 HR IF NEEDED FOR COUGH Prescriptions: Prednisone [Deltasone 10 mg Tablet] 10 mg PO ASDIR PRN #21 tablet PRN Reason: Azithromycin [Zithromax 250 mg Tablet] 250 mg PO ASDIR PRN #6 tablet PRN Reason: I personally performed the services described in the documentation, reviewed and edited the documentation which was dictated to the scribe in my presence, and it accurately records my words and actions.
== END 2019-08-07 10:25 | disposition home or self-care (01) ==
LOC: ER 00:13
DX: J20.9 Acute bronchitis, unspecified (principal); R05 Cough; R53.83 Other fatigue; R06.02 Shortness of breath; R07.89 Other chest pain; R19.7 Diarrhea, unspecified; R53.81 Other malaise; F17.211 Nicotine dependence, cigarettes, in remission; F31.9 Bipolar disorder, unspecified; F41.9 Anxiety disorder, unspecified; Z79.899 Other long term (current) drug therapy
CPT/HCPCS: 93005; 94640; 99284; 36415; 84703; 85025; 80053; 87804; 71046; 93010; J3490